=== PATIENT | female | born 1975 | race Caucasian/White ===

== ENCOUNTER 2019-09-15 17:49 | Emergency (ER) | payer SELFPAY ==
[~2019-09-15] VITALS: Ht 180.3 cm; Wt 83.9 kg
[~2019-09-15 17:49] MED LIST: CIPRO500 MG PO; PYRIDIUM100 MG PO; SUBOXONE 8 MG-1 EACH SL; ULTRAM50 MG PO; VISTARIL50 MG PO; VITAMIN B125000 MCG SL
[2019-09-15 18:55] LABS: BILIRUBIN NEGATIVE (NEGATIVE); BLOOD 3+ (NEGATIVE); CLARITY CLOUDY (CLEAR); COLOR YELLOW (YELLOW); GLUCOSE NEGATIVE (NEGATIVE); KETONE NEGATIVE (NEGATIVE); LEUKO ESTERASE 3+ (NEGATIVE); NITRITE POSITIVE (NEGATIVE); PH 6.5 (5.0-9.0); SPECIFIC GRAVITY 1.015 (1.005-1.030)
[2019-09-15] MEDS ORDERED: CEFUROXIME AXE500 MG PO (19:18)
[2019-09-15] MEDS ORDERED: PYRIDIUM200 M1 PO (19:18)
[2019-09-15 19:21] LABS: WBC TNTC wbc/hpf (0-5)
[2019-09-15 19:22] LABS: BACTERIA 3+; MUCOUS 2+
== END 2019-09-15 19:45 | disposition home or self-care (01) ==
LOC: ED 17:49
PROVIDERS: Nurse Practitioner Family
DX: N39.0 Urinary tract infection, site not specified (principal); Z79.899 Other long term (current) drug therapy